=== PATIENT | female | born 1970 ===

== ENCOUNTER 2022-10-14 11:03 | Outpatient (OUT) | payer BC, SELFPAY ==
--- NOTE | 2022-10-14 11:32 | XR_ITS ---
The [address] [address] Patient Name: LEONCIO RODRIGUEZ MRN: [id number] date: 1970 Sex: F Assigned Patient Location: [facility] Current Patient Location: [facility] Accession/Order Number: [id number] Exam Date: 10/14/2022 11:31 Report Date: 10/14/2022 13:53 At the request of: SIMEON HENRY Procedure: XR ankle BILLY min 3V EXAM: XR ankle BILLY min 3V HISTORY: BILATERAL ANKLE PAIN COMPARISON: None. TECHNIQUE: 6 views FINDINGS: Small bony fragment in the inferior aspect of the lateral left malleolus. Maintained ankle mortise. Soft tissue swelling, bilaterally. XR/XR ankle BILLY min 3V IMPRESSION: Small bony fragment of the inferior aspect of the left lateral malleolus may suggest avulsion fracture. Electronically authenticated by: NENO GUILLAUME Date: 10/14/2022 13:53
== END 2022-10-14 11:04 | disposition home or self-care (01) ==
LOC: RAD 11:03
PROVIDERS: PCP Nurse Practitioner Primary Care; Visit Provider Podiatrist Foot & Ankle Surgery
DX: M25.571 Pain in right ankle and joints of right foot (principal); M25.572 Pain in left ankle and joints of left foot
CPT/HCPCS: 73610

== ENCOUNTER 2022-12-16 14:56 | Outpatient (OUT) | payer BC, SELFPAY ==
--- NOTE | 2022-12-16 11:15 | XR_ITS ---
The [address] [address] Patient Name: LEONCIO RODRIGUEZ MRN: [id number] date: 1970 Sex: F Assigned Patient Location: [facility] Current Patient Location: [facility] Accession/Order Number: [id number] Exam Date: 12/16/2022 11:05 Report Date: 12/16/2022 12:59 At the request of: SIMEON HENRY Procedure: XR foot BILLY min 3V STUDY: XR foot BILLY min 3V, [id number] HISTORY: BILATERAL FOOT PAIN COMPARISON: Bilateral ankle x-rays 10/14/2022. FINDINGS: Right foot: No acute fracture, dislocation, or suspicious osseous lesion. Soft tissue calcifications along the lateral base of the fifth metatarsal. An os peroneum is present. Medium-sized plantar calcaneal spur. Moderate/severe Achilles insertional enthesopathy. Left foot: No acute fracture, dislocation, or suspicious osseous lesion. Soft tissue calcification along the lateral aspect of the fifth metatarsal base. Small plantar calcaneal spur. Severe Achilles insertional enthesopathy. Moderate dorsal osteophytosis at the navicular. IMPRESSION: 1. No acute osseous abnormality. 2. 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 3. Calcifications at the lateral fifth metatarsal bases which could be the sequela of chronic ligamentous or tendon injury. Electronically authenticated by: ROSA ISELA TATE Date: 12/16/2022 12:59
== END 2022-12-16 14:57 | disposition home or self-care (01) ==
LOC: RAD 14:56
PROVIDERS: PCP Nurse Practitioner Primary Care; Visit Provider Podiatrist Foot & Ankle Surgery
DX: M21.6X2 Other acquired deformities of left foot (principal); M21.6X1 Other acquired deformities of right foot
CPT/HCPCS: 73630

== ENCOUNTER 2023-05-06 12:43 | Outpatient (REF) | payer BC, SELFPAY ==
[2023-05-06 14:29] LABS: Microalbumin Urine Random <1.3 mg/dL (<=30.0)
== END 2023-05-06 12:44 | disposition home or self-care (01) ==
LOC: LAB 12:43
PROVIDERS: PCP Nurse Practitioner Primary Care; Visit Provider Nurse Practitioner Primary Care
DX: R80.9 Proteinuria, unspecified (principal)
CPT/HCPCS: 82043; 82570